=== PATIENT | female | born 1970 | race Caucasian/White ===

== ENCOUNTER 2017-08-14 21:59 | Emergency (ER) | payer OTHER ==
--- NOTE | 2017-08-14 22:23 | PDOC ---
History of Present Illness - General Stated Complaint: PAIN, ACUTE Time Seen by Provider: 08/14/17 22:22 History Source: Patient Exam Limitations: No Limitations - History of Present Illness Travel History: No Initial Comments: 08/14/17 23:49 47-year-old female with a history of NIDDM presents to the emergency department complaining of left upper quadrant abdominal discomfort. Pain is described as 7/ 10 sharp constant discomfort radiating to the side without nausea/vomiting, fever/chills, chest pain, shortness of breath, flank pains, urinary symptoms. Patient states her urxonc-xo-ywi gave her a massage 4 days ago when she felt an immediate ripping sensation to the left upper quadrant. Patient states the pain is exacerbated on touch and movements and there are no alleviating factors. Timing/Duration: reports: constant Quality: reports: moderate, sharpness Abdominal Pain Onset Location: reports: [facility] Past History - Past Medical History Allergies/Adverse Reactions: Allergies Allergy/AdvReac Type Severity Reaction Status Date / Time No Known Allergies Allergy Verified 08/15/17 03:11 Home Medications: Ambulatory Orders Aspirin [Aspirin EC] 81 mg PO DAILY 90 Days tablet. 06/10/16 Glipizide ER 10 mg PO DAILY 06/10/16 Simvastatin 40 mg PO HS #30 tablet 06/10/16 Sitagliptin Phosphate [Januvia -] 100 mg PO DAILY 06/10/16 Metformin HCl [Metformin HCl ER] 500 mg PO DAILY 08/14/17 Anemia: No Asthma: No Cancer: No Cardiac Disorders: No CVA: No COPD: No CHF: No Dementia: No Diabetes: Yes GI Disorders: No Disorders: No HTN: No Hypercholesterolemia: No Liver Disease: No Seizures: No Thyroid Disease: No - Surgical History Appendectomy: Yes - Immunization History Immunization Up to Date: Yes - Suicide/Smoking/Psychosocial Hx Smoking History: Never smoked Hx Alcohol Use: No Drug/Substance Use Hx: No Substance Use Type: None Review of Systems - Review of Systems Able to Perform ROS?: Yes Comments:: 08/14/17 23:13 CONSTITUTIONAL: Absent: fever, chills, diaphoresis, generalized weakness, malaise, loss of appetite HEENT: Absent: rhinorrhea, nasal congestion, throat pain, throat swelling, difficulty swallowing, mouth swelling, ear pain, eye pain, visual Changes CARDIOVASCULAR: Absent: chest pain, loss of consciousness, palpitations, irregular heart rate, peripheral edema RESPIRATORY: Absent: cough, shortness of breath, dyspnea with exertion, orthopnea, wheezing, stridor, hemoptysis GASTROINTESTINAL: +LUQ pain Absent: abdominal distension, nausea, vomiting, diarrhea, constipation, melena , hematochezia GENITOURINARY: Absent: dysuria, frequency, urgency, hesitancy, hematuria, flank pain, genital pain MUSCULOSKELETAL: Absent: myalgia, arthralgia, joint swelling SKIN: Absent: rash, itching, pallor HEMATOLOGIC/IMMUNOLOGIC: Absent: easy bleeding, easy bruising, lymphadenopathy, frequent infections ENDOCRINE: Absent: unexplained weight gain, unexplained weight loss, heat intolerance, cold intolerance NEUROLOGIC: Absent: headache, focal weakness or paresthesias, dizziness, unsteady gait, seizure, mental status changes, bladder or bowel incontinence PSYCHIATRIC: Absent: anxiety, depression, suicidal or homicidal ideation, hallucinations. Is the patient limited Trinidadian proficient: No *Physical Exam - Physical Exam Comments: 08/14/17 23:14 GENERAL: Well developed, well nourished. Awake and alert. No acute distress. HEENT: Normocephalic, atraumatic. PERRLA, EOMI. No conjunctival pallor. Sclera are non- icteric. Moist mucous membranes. Oropharynx is clear. NECK: Supple. Full ROM. No JVD. Carotid pulses 2+ and symmetric, without bruits. No thyromegaly. No lymphadenopathy. CARDIOVASCULAR: Regular rate and rhythm. No murmurs, rubs, or gallops. Distal pulses are 2+ and symmetric. PULMONARY: No evidence of respiratory distress. Lungs clear to auscultation bilaterally. No wheezing, rales or rhonchi. ABDOMINAL: LUQ pain on palp Soft. Non-distended. No rebound or guarding. No organomegaly. Normoactive bowel sounds. MUSCULOSKELETAL Normal range of motion at all joints. No bony deformities or tenderness. No CVA tenderness. EXTREMITIES: No cyanosis. No clubbing. No edema. No calf tenderness. SKIN: Warm and dry. Normal capillary refill. No rashes. No jaundice. NEUROLOGICAL: Alert, awake, appropriate. Cranial nerves 2-12 intact. No deficits to light touch and temperature in face, upper extremities and lower extremities. No motor deficits in the in face, upper extremities and lower extremities. Normoreflexic in the upper and lower extremities. Normal speech. Toes are down- going bilaterally. Gait is normal without ataxia. PSYCHIATRIC: Cooperative. Good eye contact. Appropriate mood and affect. ED Treatment Course - LABORATORY CBC & Chemistry Diagram: 08/14/17 22:35 08/14/17 22:35 - RADIOLOGY Radiograph Interpretation: 08/14/17 23:50 CT scan abd/pelvis with po.iv contrast: Preliminary report shows minimal hepatomegaly. No bowel obstruction, colitis, free fluid or free air. Appendix not seen. Pericecal surgical clips. Unremarkable stomach, pancreas, kidneys and gallbladder. Small umbilical hernia containing fat. *DC/Admit/Observation/Transfer Diagnosis at time of Disposition: Muscular abdominal pain in left upper quadrant - Discharge Dispostion Disposition: HOME Condition at time of disposition: Stable Admit: No - Referrals Referrals: Javad Parker MD [Staff Physician] - - Patient Instructions Printed Discharge Instructions: DI for Abdominal Muscle Strain Additional Instructions: Rest Tylenol as needed for pain Follow up with your physician within 48 hours Return to the ER for severe/persistent/worsening symptoms - Post Discharge Activity
[2017-08-14 22:28] VITALS: BP 140/78; TEMP 97.8; BMI 35.6
[2017-08-14 22:39] LABS: URINE APPEARANCE CLEAR; URINE BILIRUBIN NEGATIVE (NEGATIVE); URINE BLOOD NEGATIVE (NEGATIVE); URINE COLOR STRAW; URINE GLUCOSE (UA) 3+ (NEGATIVE); URINE KETONE NEGATIVE (NEGATIVE); URINE LEUK ESTERASE NEGATIVE (NEGATIVE); URINE NITRITE NEGATIVE (NEGATIVE); URINE PROTEIN NEGATIVE (NEGATIVE); URINE UROBILINOGEN NEGATIVE mg/dL (0.2-1.0)
[2017-08-14 22:45] LABS: BASO # 0.1 #; BASO % 0.7 % (0-2.0); EOS # 0.2 #; LYMPH # 4.1; MCH 28.8 pg (25.7-33.7); MCHC 33.2 g/dl (32.0-36.0); MEAN CELL VOLUME 86.6 fl (80-96); MEAN PLT VOLUME 9.4 fl (7.5-11.1); MONO # 0.6 #; NEUT % 50.2 % (42.8-82.8); PLATELET COUNT 274 K/MM3 (134-434); RDW 13.1 % (11.6-15.6)
[2017-08-14 23:20] LABS: ALBUMIN 3.8 g/dl (3.4-5.0); AMYLASE 52 U/L (25-115); ANION GAP 10 (8-16); CALCIUM 8.8 mg/dL (8.5-10.1); CO2 29 mmol/L (21-32); CREATININE 0.8 mg/dL (0.55-1.02); GLUCOSE,RANDOM 236 mg/dL (74-106); SGOT/AST 32 U/L (15-37); SGPT/ALT 59 U/L (12-78)
[2017-08-14 23:22] LABS: ALK PHOS 184 U/L (45-117); BILIRUBIN,TOTAL 0.2 mg/dL (0.2-1.0); TOT PROT 7.5 g/dl (6.4-8.2)
--- NOTE | 2017-08-15 00:59 | PDOC ---
*Physical Exam - Vital Signs Last Vital Signs Temp Pulse Resp BP Pulse Ox 97.8 F 65 20 140/78 98 08/14/17 22:26 08/14/17 22:26 08/14/17 22:26 08/14/17 22:26 08/14/17 22:26 ED Treatment Course - LABORATORY CBC & Chemistry Diagram: 08/14/17 22:35 08/14/17 22:35 - ADDITIONAL ORDERS Additional order review: Laboratory Results 08/14/17 08/14/17 22:35 22:30 Sodium 139 Potassium 4.1 Chloride 100 Carbon Dioxide 29 D Anion Gap 10 BUN 14 Creatinine 0.8 D Creat Clearance w eGFR > 60 Random Glucose 236 H D Calcium 8.8 Total Bilirubin 0.2 D AST 32 D ALT 59 D Alkaline Phosphatase 184 H D Total Protein 7.5 Albumin 3.8 Total Amylase 52 Lipase 180 Urine Color Straw Urine Appearance Clear Urine pH 7.0 Ur Specific [place] 1.012 Urine Protein Negative Urine Glucose (UA) 3+ H Urine Ketones Negative Urine Blood Negative Urine Nitrite Negative Urine Bilirubin Negative Urine Urobilinogen Negative Urine HCG, Qual Negative 08/14/17 22:35 RBC 4.88 MCV 86.6 MCHC 33.2 RDW 13.1 MPV 9.4 Neutrophils % 50.2 D Lymphocytes % 40.8 H D Monocytes % 6.3 D Eosinophils % 2.0 D Basophils % 0.7 Medical Decision Making - Medical Decision Making 08/15/17 00:58 agree with care from ARMANDO Lyle
[2017-08-15] MEDS ORDERED: morphine CARPU-JECT 4 MG/1 ML DISP.SYRIN IVPUSH ONE (02:06)
[2017-08-15] MEDS ORDERED: morphine CARPU-JECT 10 MG/1 ML DISP.SYRIN ONE (02:08)
[2017-08-15 04:38] VITALS: PULSE 68
[2017-08-15 14:55] LABS: URINE LEUK ESTERASE Negative (NEGATIVE)
== END 2017-08-15 04:38 | disposition home or self-care (01) ==
LOC: JER 21:59
PROC: 3E033NZ Introduction of Analgesics, Hypnotics, Sedatives into Peripheral Vein, Percutaneous Approach (ICD-10-PCS; principal; 2017-08-14)
DX: M79.1 Myalgia (principal); E11.9 Type 2 diabetes mellitus without complications; Z79.84 Long term (current) use of oral hypoglycemic drugs
CPT/HCPCS: 36415; 71020-TC; 71101-TC; 74177-TC; 80053; 81003; 82150; 83690; 84703; 85025; 99283-25

== ENCOUNTER 2020-02-09 17:41 | Emergency (ER) | payer OTHER ==
--- NOTE | 2020-02-09 17:48 | PDOC ---
Rapid Medical Evaluation Chief Complaint: Pain, Acute Time Seen by Provider: 02/09/20 17:43 Medical Evaluation: Allergies Allergy/AdvReac Type Severity Reaction Status Date / Time No Known Allergies Allergy Verified 08/15/17 03:11 02/09/20 17:43 49 year old female pmhx DM R knee pain since yesterday s/p trip and fall directly on the knee from 2 steps onto tile. Denies head trauma LOC, on ASA. PE R knee: in brace, swelling with effusion, ttp to inferior aspect of patella and tibial tuberosity Plan: XR R knee Toradol Pt moved into ED for further Eval
[2020-02-09] MEDS ORDERED: KETOROLAC TROMETHAMINE 30 MG/1 ML VIAL IM ONE (17:49)
[2020-02-09 17:50] VITALS: BP 135/80; PULSE 83; TEMP 99.1; BMI 34.7
[2020-02-09] MEDS ORDERED: KETOROLAC TROMETHAMINE 30 MG/1 ML VIAL ONE (18:19)
--- NOTE | 2020-02-09 18:52 | PDOC ---
History of Present Illness - General Chief Complaint: Pain, Acute Stated Complaint: FALL Time Seen by Provider: 02/09/20 17:43 History Source: Patient Exam Limitations: No Limitations Past History - Travel History Traveled outside of the country in the last 30 days: No Close contact w/someone who was outside of country & ill: No - Medical History Allergies/Adverse Reactions: Allergies Allergy/AdvReac Type Severity Reaction Status Date / Time No Known Allergies Allergy Verified 02/09/20 17:43 Home Medications: Ambulatory Orders Aspirin [Aspirin EC] 81 mg PO DAILY 90 Days tablet. 06/10/16 Glipizide ER 10 mg PO DAILY 06/10/16 Simvastatin 40 mg PO HS #30 tablet 06/10/16 Sitagliptin Phosphate [Januvia -] 100 mg PO DAILY 06/10/16 metFORMIN HCL [Metformin HCl ER] 500 mg PO DAILY 08/14/17 Ibuprofen 600 mg PO Q6H #30 tablet 02/09/20 Anemia: No Asthma: No Cancer: No Cardiac Disorders: No CVA: No COPD: No CHF: No Dementia: No Diabetes: Yes GI Disorders: No Disorders: No HTN: No Hypercholesterolemia: No Liver Disease: No Seizures: No Thyroid Disease: No - Surgical History Appendectomy: Yes - Immunization History Immunization Up to Date: Yes - Psycho-Social/Smoking History Smoking History: Never smoked Have you smoked in the past 12 months: No - Substance Abuse Hx (Audit-C & DAST Scrn) How often the patient has a drink containing alcohol: Never Score: In Men: 4 or > Positive; In Women: 3 or > Positive: 0 Screen Result (Pos requires Nsg. Audit-10AR): Negative In the last yr the pt used illegal drug/Rx for NonMed reason: No Score: Yes response is considered Positive: 0 Screen Result (Positive result requires Nsg. DAST-10): Negative Review of Systems - Review of Systems Able to Perform ROS?: Yes Comments:: 02/09/20 19:17 CONSTITUTIONAL: Absent: fever, chills, diaphoresis, generalized weakness, malaise, loss of appetite HEENT: Absent: rhinorrhea, nasal congestion, throat pain, throat swelling, difficulty swallowing, mouth swelling, ear pain, eye pain, visual Changes CARDIOVASCULAR: Absent: chest pain, loss of consciousness, palpitations, irregular heart rate, peripheral edema RESPIRATORY: Absent: cough, shortness of breath, dyspnea with exertion, orthopnea, wheezing, stridor, hemoptysis GASTROINTESTINAL: Absent: abdominal pain, abdominal distension, nausea, vomiting, diarrhea, constipation, melena, hematochezia GENITOURINARY: Absent: dysuria, frequency, urgency, hesitancy, hematuria, flank pain, genital p ain MUSCULOSKELETAL: Absent: myalgia, arthralgia, joint swelling SKIN: Absent: rash, itching, pallor HEMATOLOGIC/IMMUNOLOGIC: Absent: easy bleeding, easy bruising, lymphadenopathy, frequent infections ENDOCRINE: Absent: unexplained weight gain, unexplained weight loss, heat intolerance, cold intolerance NEUROLOGIC: Absent: headache, focal weakness or paresthesias, dizziness, unsteady gait, sei zure, mental status changes, bladder or bowel incontinence PSYCHIATRIC: Absent: anxiety, depression, suicidal or homicidal ideation, hallucinations. Transfer techs Is the patient limited [place]ian proficient: No *Physical Exam - Vital Signs Last Vital Signs Temp Pulse Resp BP Pulse Ox 99.1 F 83 18 135/80 98 02/09/20 17:43 02/09/20 17:43 02/09/20 17:43 02/09/20 17:43 02/09/20 17:43 - Physical Exam 02/09/20 19:18 GENERAL: Well developed, well nourished. Awake and alert. No acute distress. MUSCULOSKELETAL Tenderness palpation of the inferior aspect of the right knee. Suprapatellar effusion noted. Decreased range of motion due to pain. Normal range of motion at all other joints. No bony deformities. No CVA tenderness. EXTREMITIES: No cyanosis. No clubbing. No edema. No calf tenderness. SKIN: Warm and dry. Normal capillary refill. No rashes. No jaundice. NEUROLOGICAL: Alert, awake, appropriate. Cranial nerves 2-12 intact. No deficits to light touch and temperature in face, upper extremities and lower extremities. No motor deficits in the in face, upper extremities and lower extremities. Normoreflexic in the upper and lower extremities. Normal speech. Toes are down-going bilaterally. Gait is normal without ataxia. PSYCHIATRIC: Cooperative. Good eye contact. Appropriate mood and affect. Medical Decision Making - Medical Decision Making 02/09/20 19:18 Patient is a 49-year-old female with past medical history of diabetes, presents to the ER with right knee pain since yesterday. She states that she tripped going up the stairs and landed on her knee. Denies hitting her head or loss of consciousness. Denies numbness and tingling weakness effect extremity. A/P: Effusion On exam patient has a suprapatellar effusion range of motion due to pain. Patient presents with her on knee immobilizer. X-ray shows no factors. Toradol given with some relief of symptoms. Will refer to orthopedics for further management of the effusion. I discussed the physical exam findings, ancillary test results and final diagnoses with the patient. I answered all of the patient's questions. The patient was satisfied with the care received and felt comfortable with the discharge plan and treatment plan. The Patient agrees to follow up with the primary care physician/specialist within 24-72 hours. Return precautions were given. Discharge - Discharge Information Problems reviewed: Yes Clinical Impression/Diagnosis: Knee effusion, right Fall Qualifiers: Encounter type: initial encounter Qualified Code(s): W19.XXXA - Unspecified fall, initial encounter Condition: Stable Disposition: HOME - Admission No - Additional Discharge Information Prescriptions: Ibuprofen 600 mg PO Q6H #30 tablet - Follow up/Referral Referrals: Beto Coleman MD [Primary Care Provider] - Brant Field MD [Staff Physician] - - Patient Discharge Instructions Patient Printed Discharge Instructions: DI for Knee Effusion Additional Instructions: You were seen for your knee pain today. Your x-ray showed you have an effusion or a fluid pocket above the right knee. Please continue to wear the knee immobilizer and Perez wrap to help with your pain. You may take Motrin 600 mg every 6 hours as needed for pain or swelling. Please ice the knee to help reduce the swelling for 20-minute intervals. Please follow-up with orthopedics in 1 to 3 days. A referral has been provided to you. Return to the ER for worsening pain, fever, increased swelling or if you have any changes in your symptoms. Te vieron por tu dolor de rodilla hoy. La radiografa mostr que tienes un derrame o un bolsillo fluido por encima de la rodilla derecha. Por favor, contine usando el inmovilizador de rodilla y la envoltura de As para ayudar con mccall dolor. Puede sulaiman Motrin 600 mg cada 6 horas segn sea necesario para el dolor o la hinchazn. Por favor, hielo la rodilla para ayudar a reducir la hinchazn miguel intervalos de 20 minutos. Por favor, steph un seguimiento con ortopedia en 1 a 3 jin. Se le melgar proporcionado amparo referencia. Regresa a urgencias para empeorar el dolor, fiebre, aumento de la hinchazn o si tienes algn cambio en los sntomas. - Post Discharge Activity Work/Back to School Note: Back to Work
== END 2020-02-09 18:58 | disposition home or self-care (01) ==
LOC: JERFT 17:41
PROC: 3E023GC Introduction of Other Therapeutic Substance into Muscle, Percutaneous Approach (ICD-10-PCS; principal; 2020-02-09)
DX: M25.461 Effusion, right knee (principal); W19.XXXA Unspecified fall, initial encounter
CPT/HCPCS: 73564-TC-RT-FY; 99284-25

== ENCOUNTER 2020-07-17 14:22 | Emergency (ER) | payer OTHER ==
[2020-07-17 14:44] VITALS: BP 128/77; PULSE 66; TEMP 97.5; BMI 32.9
[2020-07-17] MEDS ORDERED: LIDOCAINE 5% TOPICAL PATCH TP ONE (15:10)
[2020-07-17] MEDS ORDERED: KETOROLAC TROMETHAMINE 30 MG/1 ML VIAL IM ONE (15:10)
[2020-07-17] MEDS ORDERED: ACETAMINOPHEN 500 MG TABLET (FP) PO ONE (15:11)
[2020-07-17] MEDS ORDERED: KETOROLAC TROMETHAMINE 30 MG/1 ML VIAL ONE (15:12)
[2020-07-17] MEDS ORDERED: LIDOCAINE 5% TOPICAL PATCH ONE (15:12)
[2020-07-17] MEDS ORDERED: ACETAMINOPHEN 500 MG TABLET (FP) ONE (15:12)
[2020-07-17] MEDS ORDERED: LIDOCAINE PATCH REMOVAL MC ONE (22:00)
== END 2020-07-17 15:44 | disposition home or self-care (01) ==
LOC: JERFT 14:22
PROC: 3E0233Z Introduction of Anti-inflammatory into Muscle, Percutaneous Approach (ICD-10-PCS; principal; 2020-07-17)
DX: M54.5 Low back pain (principal)
CPT/HCPCS: 99284-25